=== PATIENT | male | born 1940 | race Caucasian/White ===

== ENCOUNTER → 2023-05-27 08:23 | Outpatient (REF) | payer MEDICARE, BC, SELFPAY ==
[2023-05-27 09:55] LABS: Albumin 3.5 g/dl (3.5-5.0); Blood Urea Nitrogen 37 mg/dl (9-20); Calcium 9.3 mg/dl (8.4-10.2); Carbon Dioxide 24 mmol/L (22-30); Chloride 108 mmol/L (98-107); Glucose 98 mg/dl (70-99); Phosphorus 3.5 mg/dl (2.5-4.5); Potassium 4.4 mmol/L (3.5-5.1); Sodium 138 mmol/L (135-145); eGFR 39.02
[2023-05-27 10:03] LABS: Protein/creatinine Ratio 0.7; Urine Protein 31 mg/dl
[2023-05-27 11:25] LABS: Intact PTH 125.3 pg/ml (13.6-85.8)
== END ==
LOC: REG 08:23
PROVIDERS: ATTENDING PHYSICIAN Specialist
DX: R80.9 Proteinuria, unspecified (principal); I10 Essential (primary) hypertension; N18.32 Chronic kidney disease, stage 3b; N25.81 Secondary hyperparathyroidism of renal origin
CPT/HCPCS: 36415; 80069; 82570; 83970; 84156

== ENCOUNTER → 2023-09-12 08:09 | Outpatient (REF) | payer MEDICARE, BC, SELFPAY ==
[2023-09-12 10:58] LABS: Blood Urea Nitrogen 34 mg/dl (9-20); Calcium 9.4 mg/dl (8.4-10.2); Carbon Dioxide 23 mmol/L (22-30); Chloride 110 mmol/L (98-107); Glucose 93 mg/dl (70-99); Potassium 4.6 mmol/L (3.5-5.1); Sodium 140 mmol/L (135-145); eGFR 36.43
== END ==
LOC: REG 08:09
PROVIDERS: ATTENDING PHYSICIAN Specialist
DX: N18.32 Chronic kidney disease, stage 3b (principal)
CPT/HCPCS: 36415; 80048

== ENCOUNTER 2023-10-19 06:40 | Day surgery (SDC) | payer MEDICARE, BC, SELFPAY ==
[2023-10-19 11:36] VITALS: BP 163/97
[2023-10-19 11:46] VITALS: BMI 26.1
[2023-10-19 11:47] VITALS: BMI 26.1
[2023-10-19 13:00] VITALS: BP 125/80
[2023-10-19 13:15] VITALS: BP 131/81
[2023-10-19 13:21] VITALS: BP 127/86
== END 2023-10-19 13:35 | disposition home or self-care (01) ==
LOC: SDS 06:40
PROVIDERS: ATTENDING PHYSICIAN Internal Medicine Gastroenterology
DX: Z12.11 Encounter for screening for malignant neoplasm of colon (principal); D12.0 Benign neoplasm of cecum; K63.5 Polyp of colon; K57.30 Diverticulosis of large intestine without perforation or abscess without bleeding; K64.0 First degree hemorrhoids; Z86.010 Personal history of colon polyps
CPT/HCPCS: 45385; 88305

== ENCOUNTER → 2023-12-20 09:04 | Outpatient (REF) | payer MEDICARE, BC, SELFPAY ==
[2023-12-20 09:51] LABS: Hematocrit 40.8 % (39.0-52.0); Hemoglobin 13.9 g/dL (13.0-18.0)
[2023-12-20 10:29] LABS: Protein/creatinine Ratio 1.2; Urine Protein 33 mg/dl
[2023-12-20 10:39] LABS: Blood Urea Nitrogen 31 mg/dl (9-20); Calcium 9.6 mg/dl (8.4-10.2); Carbon Dioxide 22 mmol/L (22-30); Chloride 109 mmol/L (98-107); Glucose 99 mg/dl (70-99); Phosphorus 3.4 mg/dl (2.5-4.5); Potassium 4.9 mmol/L (3.5-5.1); Sodium 145 mmol/L (135-145); eGFR 41.96
[2023-12-20 14:29] LABS: Intact PTH 135.2 pg/ml (13.6-85.8)
== END ==
LOC: REG 09:04
PROVIDERS: ATTENDING PHYSICIAN Specialist
DX: I12.9 Hypertensive chronic kidney disease with stage 1 through stage 4 chronic kidney disease, or unspecified chronic kidney disease (principal); N18.30 Chronic kidney disease, stage 3 unspecified; D63.1 Anemia in chronic kidney disease
CPT/HCPCS: 36415; 80069; 82570; 83970; 84156; 85014; 85018

== ENCOUNTER → 2024-04-04 08:32 | Outpatient (REF) | payer MEDICARE, BC, SELFPAY ==
[2024-04-04 09:45] LABS: Urine Albumin Trace (Neg - Trace); Urine Bilirubin Negative (Negative); Urine Character Clear (Clear); Urine Color Yellow; Urine Glucose 3+ (Negative); Urine Ketone Negative (Negative); Urine Leukocyte Negative (Negative); Urine Nitrite Negative (Negative); Urine Occult Blood Trace (Negative); Urine Specific Gravity 1.005 (<1.030); Urine Urobilinogen Negative (Neg - 1+)
[2024-04-04 10:01] LABS: % Eosinophils 7.5 % (0-6); % Immature Granulocytes 0.2 % (0-0.5); % Lymphocytes 27.4 % (20.5-51.1); % Monocytes 11.8 % (1.7-9.3); % Neutrophils 52.1 % (42.2-75.2); Absolute Basophils 0.1 10^3/uL (0-0.2); Absolute Eosinophils 0.4 10^3/uL (0-0.7); Absolute Lymphocytes 1.4 10^3/uL (1.2-3.4); Absolute Monocytes 0.6 10^3/uL (0.1-0.6); Absolute Neutrophils 2.7 10^3/uL (1.4-6.5); Hematocrit 41.5 % (39.0-52.0); Hemoglobin 13.8 g/dL (13.0-18.0); Mean Corp Hgb Conc. 33.3 g/dL (33.0-37.0); Mean Corpuscular Hgb 32.8 pg (27.0-31.0); Mean Corpuscular Volume 98.6 fL (80.0-94.0); Mean Platelet Volume 9.3 fL (7.4-10.4); Nucleated Red Blood Cells % 0 % (-); Platelet Count 229 10^3/uL (130-400); Red Blood Cell Count 4.21 10^6/uL (4.70-6.10); Red Cell Dist. Width 13.2 % (11.5-14.5); White Blood Cell Count 5.1 10^3/uL (4.8-10.8)
[2024-04-04 10:25] LABS: Urine Squamous Cell 0-2 /LPF (Few)
[2024-04-04 10:26] LABS: Urine Amorphous Seen; Urine White Cell 0-2 /HPF (0-5)
[2024-04-04 10:49] LABS: Protein/creatinine Ratio 1.5; Urine Protein 32 mg/dl
[2024-04-04 11:11] LABS: ALT (SGPT) 15 U/L (0-50); AST (SGOT) 21 U/L (17-59); Albumin 3.8 g/dl (3.5-5.0); Alkaline Phosphatase 161 U/L (38-126); Blood Urea Nitrogen 33 mg/dl (9-20); Calcium 9.4 mg/dl (8.4-10.2); Carbon Dioxide 25 mmol/L (22-30); Chloride 105 mmol/L (98-107); Glucose 98 mg/dl (70-99); LDH 178 U/L (120-246); Phosphorus 3.3 mg/dl (2.5-4.5); Potassium 4.9 mmol/L (3.5-5.1); Sodium 139 mmol/L (135-145); Total Bilirubin 0.6 mg/dl (0.2-1.3); Total Protein 6.2 g/dl (6.3-8.2); eGFR 36.43
== END ==
LOC: REG 08:32
PROVIDERS: ATTENDING PHYSICIAN Specialist; FAMILY PHYSICIAN Dermatology
DX: I12.9 Hypertensive chronic kidney disease with stage 1 through stage 4 chronic kidney disease, or unspecified chronic kidney disease (principal); Z85.820 Personal history of malignant melanoma of skin
CPT/HCPCS: 36415; 80053; 81003; 81015; 82570; 83615; 83970; 84100; 84156; 85025

== ENCOUNTER → 2024-05-02 08:53 | Outpatient (REF) | payer MEDICARE, BC, SELFPAY ==
[2024-05-02 10:19] LABS: Blood Urea Nitrogen 37 mg/dl (9-20); Calcium 9.5 mg/dl (8.4-10.2); Carbon Dioxide 27 mmol/L (22-30); Chloride 107 mmol/L (98-107); Glucose 96 mg/dl (70-99); Magnesium 2.4 mg/dl (1.6-2.3); Potassium 4.8 mmol/L (3.5-5.1); Sodium 138 mmol/L (135-145); eGFR 34.14
[2024-05-02 10:47] LABS: PSA, Total - Screen 2.25 ng/ml (0.0-4.0)
[2024-05-03 21:55] LABS: Alk Phos Bone Specific Results 25.5 ug/L (6.5-20.1)
== END ==
LOC: REG 08:53
PROVIDERS: ATTENDING PHYSICIAN Specialist
DX: Z00.00 Encounter for general adult medical examination without abnormal findings (principal); N18.32 Chronic kidney disease, stage 3b; R74.8 Abnormal levels of other serum enzymes; Z12.5 Encounter for screening for malignant neoplasm of prostate
CPT/HCPCS: 36415; 80048; 83735; 84075; G0103

== ENCOUNTER → 2024-06-14 08:07 | Outpatient (REF) | payer MEDICARE, BC, SELFPAY ==
[2024-06-14 09:58] LABS: Blood Urea Nitrogen 38 mg/dl (9-20); Calcium 9.7 mg/dl (8.4-10.2); Carbon Dioxide 25 mmol/L (22-30); Chloride 105 mmol/L (98-107); Glucose 95 mg/dl (70-99); Magnesium 2.4 mg/dl (1.6-2.3); Potassium 4.5 mmol/L (3.5-5.1); Sodium 139 mmol/L (135-145); eGFR 36.21
[2024-06-15 10:13] LABS: Alk Phos Bone Specific Results 25.4 ug/L (6.5-20.1)
== END ==
LOC: REG 08:07
PROVIDERS: ATTENDING PHYSICIAN Specialist
DX: Z00.00 Encounter for general adult medical examination without abnormal findings (principal); N18.32 Chronic kidney disease, stage 3b; R74.8 Abnormal levels of other serum enzymes
CPT/HCPCS: 36415; 80048; 83735; 84075

== ENCOUNTER → 2024-09-18 08:37 | Outpatient (REF) | payer MEDICARE, BC, SELFPAY ==
[2024-09-18 10:48] LABS: Albumin 3.8 g/dl (3.5-5.0); Blood Urea Nitrogen 35 mg/dl (9-20); Calcium 9.5 mg/dl (8.4-10.2); Carbon Dioxide 21 mmol/L (22-30); Chloride 114 mmol/L (98-107); Glucose 100 mg/dl (70-99); Phosphorus 3.3 mg/dl (2.5-4.5); Potassium 4.5 mmol/L (3.5-5.1); Sodium 139 mmol/L (135-145); eGFR 36.21
[2024-09-18 11:52] LABS: Intact PTH 123.3 pg/ml (13.6-85.8)
== END ==
LOC: REG 08:37
PROVIDERS: ATTENDING PHYSICIAN Specialist
DX: N18.32 Chronic kidney disease, stage 3b (principal)
CPT/HCPCS: 36415; 80069; 83970

== ENCOUNTER → 2025-01-17 08:12 | Outpatient (REF) | payer MEDICARE, BC, SELFPAY ==
[2025-01-17 09:38] LABS: ALT (SGPT) 16 U/L (0-50); AST (SGOT) 21 U/L (17-59); Albumin 3.7 g/dl (3.5-5.0); Alkaline Phosphatase 129 U/L (38-126); Blood Urea Nitrogen 37 mg/dl (9-20); Calcium 9.5 mg/dl (8.4-10.2); Carbon Dioxide 26 mmol/L (22-30); Chloride 110 mmol/L (98-107); Glucose 94 mg/dl (70-99); Potassium 4.6 mmol/L (3.5-5.1); Sodium 138 mmol/L (135-145); Total Protein 6.3 g/dl (6.3-8.2); eGFR 33.93
[2025-01-17 09:54] LABS: Vitamin D, 25-OH*** 62.3 ng/mL (30-80)
== END ==
LOC: REG 08:12
PROVIDERS: ATTENDING PHYSICIAN Specialist
DX: N18.32 Chronic kidney disease, stage 3b (principal)
CPT/HCPCS: 36415; 80053; 82306; 82570; 83970; 84156

== ENCOUNTER → 2025-03-07 08:21 | Outpatient (REF) | payer MEDICARE, BC, SELFPAY ==
[2025-03-07 09:23] LABS: Hematocrit 38.6 % (39.0-52.0); Hemoglobin 13.1 g/dL (13.0-18.0); Mean Corp Hgb Conc. 33.9 g/dL (33.0-37.0); Mean Corpuscular Volume 99.2 fL (80.0-94.0); Nucleated Red Blood Cells % 0 % (-); Platelet Count 196 10^3/uL (130-400); Red Cell Dist. Width 13.3 % (11.5-14.5)
[2025-03-07 09:59] LABS: ALT (SGPT) 17 U/L (0-50); AST (SGOT) 21 U/L (17-59); Albumin 3.9 g/dl (3.5-5.0); Alkaline Phosphatase 142 U/L (38-126); Blood Urea Nitrogen 35 mg/dl (9-20); Calcium 9.7 mg/dl (8.4-10.2); Carbon Dioxide 26 mmol/L (22-30); Chloride 109 mmol/L (98-107); Glucose 93 mg/dl (70-99); LDH 176 U/L (120-246); Potassium 4.8 mmol/L (3.5-5.1); Sodium 139 mmol/L (135-145); Total Protein 6.5 g/dl (6.3-8.2); eGFR 36.21
[2025-03-07 10:12] LABS: Vitamin D, 25-OH*** 61.4 ng/mL (30-80)
== END ==
LOC: REG 08:21
PROVIDERS: ATTENDING PHYSICIAN Dermatology; FAMILY PHYSICIAN Specialist
DX: Z85.820 Personal history of malignant melanoma of skin (principal); E61.1 Iron deficiency; R80.9 Proteinuria, unspecified; N18.32 Chronic kidney disease, stage 3b
CPT/HCPCS: 36415; 80053; 82306; 82570; 83615; 83970; 84100; 84156; 85025